=== PATIENT | male | born 1935 | race Caucasian/White ===

== ENCOUNTER 2024-05-28 20:22 | Emergency (ER) | payer MEDICARE, SELFPAY ==
[2024-05-28 20:25] VITALS: BP 151/75
--- NOTE | 2024-05-28 20:59 | ED.GENMED ---
History of Present Illness
General
Chief Complaint: Fall
Source: patient
Exam Limitations: none
Time Seen by Provider: 05/28/24 20:36
History of Present Illness
History of Present Illness:
This is a 88 year old male that comes in with c/o fall. States that he was out for dinner and he was coming out of the Restaurant and he missed the step. States that he fell on the right sided and hit his face and heat. Denies any LOC or Thinners.
Family states that something is brewing as she gave the patient Mucinex as he has a cough and his nose is running. States that he also c/o a sore throat. States that he is here from [place]. Denies any fever, chills, chest pain, SOB, abd pain,
nausea, vomiting, diarrhea, headache, dizziness, urinary burning.
Past History
Past History
ED Past Medical History: Cancer (Bladder CA), HTN, Hypercholesterolemia, Psychiatric (Anxiety, ) and Other (Renal calculus, UTI, )
ED Past Surgical History: Cholecystectomy and Orthopedic (Right ankle surgery, left elbow surgery, )
Social History
Tobacco: Former smoker
Alcohol: None
Personal:
Living: with family
Review of Systems
Review of Systems
All Other Systems: ROS reviewed and negative except as documented in HPI and ROS
Constitutional: Reports no symptoms; Denies fever or chills
EENT: Reports no symptoms
Respiratory: Reports no symptoms; Denies cough or trouble breathing
Cardiac: Reports no symptoms; Denies chest pain
ABD/GI: Reports no symptoms; Denies abdominal pain, nausea, vomiting or diarrhea
: Reports no symptoms; Denies dysuria, frequency or urgency
Musculoskeletal: Reports no symptoms
Skin: Reports other (Right facial superficial lacerations, abrasion left forearm, Right hand and both knee's)
Neurological: Reports no symptoms; Denies dizzy or headache
Psychiatric: Reports no symptoms
Phy Exam
General Physical Exam
General Presentation: no apparent distress
General age: appears stated age
General Skin: warm and dry
General Habitus: elderly
General Mental: alert
General Hydration: dry mucous membranes
ENT Exam
ENT Exam: TM's normal, pharynx normal and neck supple
Eye Exam
Eye Exam: EOMI
Cardiovascular Exam
Cardiovascular Exam: regular rate/rhythm and normal peripheral pulses
Pulmonary Exam
Pulmonary Exam: lungs clear, no respiratory distress, no rales, chest non tender, no crackles, no rhonchi, no wheezing and no cough
Gastrointestinal Exam
Gastrointestinal Exam: normal bowel sounds, non tender, soft, no organomegaly, no pulsatile mass and non distended
Musculoskeletal Exam
Musculoskeletal Exam: full ROM, edema (ankles nonpitting) and other (Negative for any cervical neck tenderness, Shoulder tenderness, Negative for discomfort with abduction, crossing over, flexion of the elbows, wrist or fingers. Negative knee
discomfort with flexion, inversion or eversion. )
Skin Exam
Skin Exam: normal color, warm/dry, no rash, no petechia and other (Superficial laceration right lower brow area with abrasion of the right face and Mikado shaped superficial laceration. Gaurav knee abrasion, left forearm and right hand abrasion. )
Psychiatric Exam
Psychiatric Exam: normal mood/affect
Course
Orders/Labs/Results
Orders:
Orders
05/28/24 20:53
CT Facial Bones W/o Iv Contras Urgent
Comment:
Reason For Exam: Right sided facial discomfort. fall
CT Head W/o Iv Contrast Urgent
Comment:
Reason For Exam: fall hitting head
05/28/24 21:01
CR Chest - 2 Views Urgent
Comment:
Reason For Exam: Cough
05/28/24 21:[address] Non Medication Order As Directed
Physician Order: Please clean skin tears on knee's and left forearm and right hand.
Above order entered?: Yes
05/28/24 21:27
COVID-19 Antigen Urgent
Source: Nasal Swab
Abnormal Lab Results
05/28/24
21:27
SARS-CoV-2 Antigen Positive A
(Negative)
COVID Positive
Vital Signs
Initial and Last Documented VS:
Initial Vital Signs
Temp Pulse Resp BP Pulse Ox
98.5 F 81 18 151/75 97
05/28/24 20:25 05/28/24 20:25 05/28/24 20:25 05/28/24 20:25 05/28/24 20:25
Last Documented Vital Signs
Temp Pulse Resp BP Pulse Ox
98.5 F 81 18 151/75 97
05/28/24 20:25 05/28/24 20:25 05/28/24 20:25 05/28/24 20:25 05/28/24 20:25
Procedures
Laceration Closure
Right Lower Eye brow:
Status of Wound: clean
Size of Wound in cm: 3
Description of Wound Edges: sharp
Preparation: cleaned with saline
Wound exploration: explored to base- no FB
Type of Closure: Dermabond-skin glue
Right Upper Cheek:
Status of Wound: clean
Size of Wound in cm: 2
Description of Wound Edges: sharp
Preparation: cleaned with saline
Wound exploration: explored to base- no FB
Type of Closure: Dermabond-skin glue
Additional information:
C shaped
MDM/Problems Addressed
Differential Diagnosis Includes:
Accidental fall. Contusion, Facial laceration.
MDM/Problems Addressed:
This is a 88 year old male that comes in with c/o fall. States that he missed a step when he was leaving the restaurant. States that he fell on his face.
Will get CT head and facial bones. Will glue superficial lacerations on face.
Back into see patient and family. Explained that he has COVID. CT of the head and facial bones is negative for any acute process. Explained that he may have a black eye tomorrow. Patient to keep the face dry for the next 24 hours. Patient then can
gently pat the face with warm water. Explained that the glue will fall off on its own. Patient to follow up with the family doctor when he gets home. Return with any concerns.
Chronic conditions affecting care:
NA
Acute Exacerbation and/or Progression of Chronic Illness:
NA
*Radiology
Radiology exam reviewed: radiology read reviewed (cHEST-no ACUTE CARDIOPULMONARY ABNORMALITY. Head-NO acute intracranial abnormality noted. Facial bones-Small right periorbital soft tissues hematoma without evidence of acute facial bone
fracture. Mildly prominent lingual tonsils, Possible reactive. )
*Pulse Oximetry
Patient hypoxic: no
*EKG
Interpreted by ED Provider?: NA
Rate: EKG- N/A
*Highway Maintainer Interpretation
Rate: Highway Maintainer- N/A
*Critical Care Note
Total Time (30-74mins, 75-104mins- exclusive of procedures): Not Applicable
ED Attending Note
-
Portions of this chart may have been created with voice recognition software.� Occasional wrong word or��sound alike� substitutions may have occurred due to the inherent limitations of voice recognition software.
Discharge Plan
Departure
Patient Disposition: Home (Routine Discharge)
Date of Disposition: 05/28/24
Time of Disposition: 22:25
Patient with high blood pressure during this ER visit?: Yes
Condition: Good
Covid-19: Confirmed COVID-19
Discharge Problem:
Accidental fall, Face lacerations, Abrasion of skin, COVID
Instructions: Laceration Repair With Glue (DC), Preventing falls in adults, Skin Abrasions (DC), COVID-19 ED, BLOOD PRESSURE
Referrals:
PRIVATE,PHYSICIAN [Family Provider] -
Activity Restrictions/Additional Instructions:
As discussed, your CT of the head and facial bones is negative for any acute process. You have 2 lacerations on the face that have been glued. Please keep this area dry for the next 24 hours. After this gently pat the face to wash but do not scrub.
The glue will fall off on its own in about 7 days. Tylenol as needed for any headache pain. YOU ARE POSITIVE FOR COVID. Please increase your water intake to 8-8oz glasses daily. Follow up with the family doctor when you get home. IF YOU HAVE ANY
OTHER CONCERNS PLEASE RETURN TO THE EMERGENCY ROOM.
Interventions
Interventions:
*General Assessment Last Done: 05/28/24 20:33
ED- Fall Risk Assessment Last Done: 05/28/24 21:42
ED-Musculoskeletal Assessment Last Done: 05/28/24 21:42
ED- Neurological Assessment Last Done: 05/28/24 21:42
ED-Skin Assessment Last Done: 05/28/24 21:42
Discharge Date and Time
Print Language: PERUVIAN
[2024-05-28 21:48] LABS: COVID-19 Antigen Positive (Negative)
== END 2024-05-28 22:43 | disposition home or self-care (01) ==
LOC: EMR 20:22
PROVIDERS: Clinical Nurse Specialist Family Health; EMERGENCY PHYSICIAN Emergency Medicine
DX: S01.81XA Laceration without foreign body of other part of head, initial encounter (principal); U07.1 COVID-19; S00.81XA Abrasion of other part of head, initial encounter; S80.212A Abrasion, left knee, initial encounter; S80.211A Abrasion, right knee, initial encounter; S50.812A Abrasion of left forearm, initial encounter; S60.511A Abrasion of right hand, initial encounter; W17.89XA Other fall from one level to another, initial encounter; Y93.01 Activity, walking, marching and hiking; Y92.511 Restaurant or cafe as the place of occurrence of the external cause; Z11.52 Encounter for screening for COVID-19; I10 Essential (primary) hypertension; E78.00 Pure hypercholesterolemia, unspecified; F41.9 Anxiety disorder, unspecified; Z85.51 Personal history of malignant neoplasm of bladder; Z87.442 Personal history of urinary calculi; Z87.440 Personal history of urinary (tract) infections; Z87.891 Personal history of nicotine dependence; Z90.49 Acquired absence of other specified parts of digestive tract
CPT/HCPCS: 99284; 12013; 70450; 70486; 71046; 87811